=== PATIENT | male | born 1975 | race Caucasian/White ===

== ENCOUNTER → 2016-10-05 | Outpatient (REF) | payer BC ==
[2016-10-05 18:08] LABS: PERCENT SATURATION 24.9 % (19.7-37.4)
== END ==
LOC: M LAB REF 17:07
PROVIDERS: ATTEND Internal Medicine Medical Oncology
DX: E83.110 Hereditary hemochromatosis (principal)

== ENCOUNTER → 2017-01-04 | Outpatient (REF) | payer BC ==
[2017-01-04 20:00] LABS: PERCENT SATURATION 29.8 % (19.7-37.4)
== END ==
LOC: M LAB REF 17:14
PROVIDERS: ATTEND Internal Medicine Medical Oncology
DX: E83.110 Hereditary hemochromatosis (principal)

== ENCOUNTER → 2017-02-08 | Outpatient (REF) | payer BC ==
[2017-02-08 20:05] LABS: PERCENT SATURATION 29.6 % (19.7-37.4)
== END ==
LOC: M LAB REF 17:42
PROVIDERS: ATTEND Internal Medicine Medical Oncology
DX: E83.110 Hereditary hemochromatosis (principal)

== ENCOUNTER → 2017-05-20 | Outpatient (REF) | payer BC ==
[2017-05-20 19:14] LABS: PERCENT SATURATION 41.3 % (19.7-50.0)
== END ==
LOC: M LAB REF 14:21
PROVIDERS: ATTEND Internal Medicine Medical Oncology
DX: E83.110 Hereditary hemochromatosis (principal)

== ENCOUNTER → 2017-09-29 | Outpatient (REF) | payer BC ==
[2017-09-29 21:01] LABS: FERRITIN 110 NG/ML (26-388); IRON (FE) 111 UG/DL (65-175); PERCENT SATURATION 32.6 % (19.7-50.0); TOTAL IRON BINDING CAPACITY 340 UG/DL (250-450)
== END ==
LOC: M LAB REF 19:49
DX: E83.110 Hereditary hemochromatosis (principal)
CPT/HCPCS: 83550

== ENCOUNTER → 2017-11-29 | Outpatient (REF) | payer BC ==
[2017-11-29 18:25] LABS: FERRITIN 90 NG/ML (26-388); IRON (FE) 120 UG/DL (65-175); PERCENT SATURATION 34.8 % (19.7-50.0); TOTAL IRON BINDING CAPACITY 345 UG/DL (250-450)
[2017-11-29 19:34] LABS: ERYTHROCYTE SEDIMENTATION RATE 1 mm/hr (0-15)
== END ==
LOC: M LAB REF 17:35
DX: E83.111 Hemochromatosis due to repeated red blood cell transfusions (principal)
CPT/HCPCS: 83550

== ENCOUNTER → 2018-04-11 | Outpatient (REF) | payer BC ==
[2018-04-11 19:11] LABS: FERRITIN 109 NG/ML (26-388)
== END ==
LOC: M LAB REF 17:00
DX: E83.110 Hereditary hemochromatosis (principal)

== ENCOUNTER → 2018-12-29 | Outpatient (CLI) | payer BC ==
[~2018-12-29] MED LIST: LOSA25TA14 PO
[2018-12-29 19:33] LABS: BLOOD UREA NITROGEN 22 MG/DL (7-18); C REACTIVE PROTEIN QUANTITATIV < 0.30 MG/DL (0.00-0.30); CALCIUM LEVEL 8.5 MG/DL (8.5-10.1); CARBON DIOXIDE LEVEL 30 MEQ/L (21-32); CHLORIDE LEVEL 104 MEQ/L (98-107); CREATININE FOR GFR 0.81 MG/DL (0.70-1.30); GLOMERULAR FILTRATION RATE > 60.0 (>60); GLUCOSE, FASTING 108 MG/DL (70-100); POTASSIUM SERUM 4.4 MEQ/L (3.5-5.1); SODIUM LEVEL 137 MEQ/L (136-145)
[2018-12-29 19:34] LABS: BASO # 0.1 10^3/uL (0.0-0.2); EOS # 0.1 10^3/uL (0.0-0.50); EOS % 2.5 % (0.0-3.0); HEMATOCRIT 46.2 % (42.0-52.0); HEMOGLOBIN 16.3 g/dl (13.5-17.5); LYMPH # 1.3 10^3/uL (1.5-4.5); LYMPH % 25.6 % (24.0-44.0); MEAN CORPUSCULAR HGB CONC 35.3 g/dl (32.0-36.5); MEAN CORPUSCULAR VOLUME 93.5 fl (80.0-96.0); MONO % 18.8 % (0.0-5.0); NEUTROPHILS # 2.7 10^3/uL (1.8-7.7); NEUTROPHILS % 51.9 % (36.0-66.0); PLATELET COUNT, AUTOMATED 230 10^3/uL (150-450); RED BLOOD COUNT 4.94 10^6/uL (4.30-6.10); WHITE BLOOD COUNT 5.2 10^3/uL (4.0-10.0)
[2018-12-29 22:07] LABS: ERYTHROCYTE SEDIMENTATION RATE 2 mm/hr (0-15)
== END ==
LOC: M WUC 16:27
PROVIDERS: ATTEND Physician Assistant
DX: R22.1 Localized swelling, mass and lump, neck (principal)

== ENCOUNTER → 2019-02-13 | Outpatient (CLI) | payer BC ==
[~2019-02-13] MED LIST changes: +FLON1SPR NARES; +ISOVUE-370 76% 100ML VIAL (Q9967) As Ordered ONE
--- NOTE | 2019-02-13 17:27 | REP ---
Soft-tissue neck CT study with IV contrast: History: Lymphadenopathy. New bilateral neck lymphadenopathy. CT contrast dose: 75 ml of intravenous Isovue [address] findings: The visualized paranasal sinuses are clear. Visualized intracranial structures are unremarkable. No intraorbital abnormality is seen. Submandibular and thyroid glands are normal and symmetric. The parotid glands are somewhat nodular in texture and increased in density in size bilaterally and symmetrically consistent with parotid lymphadenopathy. Outside the parotid distribution, there is no significant lymph node enlargement in the suprahyoid or infrahyoid neck. There is a supraclavicular lymph node on the right which is borderline measuring 0.8 x 1.5 cm. There is a smaller node adjacent to this. However, in the upper mediastinum, there is fairly bulky pretracheal precarinal and superior mediastinal adenopathy. The largest node in the superior paratracheal region measures 18 x 18 mm. There is a similar sized lymph node adjacent to this. The lung apices are clear. No airway lesion is seen. No bony destructive lesion is observed. There is a left central disc bulging versus broad-based disc herniation at C5-6 in the cervical spine. Impression: Nodular enlargement of the parotid glands bilaterally consistent with intraparotid lymph adenopathy. There is also superior mediastinal lymphadenopathy. Rule out lymphoma. Consider CT study of the chest abdomen and pelvis. Electronically Signed by Oneil Orellana MD 02/14/2019 08:30 A
== END ==
LOC: M RAD 14:35
PROVIDERS: ATTEND Internal Medicine Medical Oncology
DX: I89.0 Lymphedema, not elsewhere classified (principal)
CPT/HCPCS: 70491; Q9967

== ENCOUNTER → 2019-02-24 | Outpatient (CLI) | payer BC ==
[~2019-02-24] MED LIST changes: +GASTROGRAFIN SOLUTION 30ML (Q9963) As Ordered ONE
--- NOTE | 2019-02-24 10:10 | REP ---
CT of the abdomen and pelvis without and with IV contrast and with bowel contrast for lymphadenopathy: There are no comparisons. Studies performed. Contiguous with the chest CT this same date. The hepatic parenchyma is homogeneous. The gallbladder, pancreas and spleen are unremarkable. The adrenals are unremarkable. The kidneys are unremarkable. The abdominal aorta is unremarkable. There is no periaortic adenopathy or mass. There is no mesenteric adenopathy. The bowel is unremarkable. Pelvis: There are surgical clips adjacent to the cecal tip compatible with appendectomy. The terminal ileum is unremarkable. There is no pelvic adenopathy. There is no ascites. The bladder is unremarkable. There are no lytic, blastic or destructive skeletal changes. There is unilateral spondylolysis of L5 on the right without spondylolisthesis. There is degenerative disc disease at L4-5. Impression: There is no adenopathy. There is no ascites. Appendectomy. Otherwise, negative CT of the abdomen. Electronically Signed by Landry Franks MD 02/24/2019 10:01 A
--- NOTE | 2019-02-24 10:41 | REP ---
CT of the chest with IV contrast for lymphadenopathy: There are no comparisons. There are enlarged mediastinal paratracheal and subcarinal nodes. There are enlarged hilar nodes bilaterally. There is no axillary lymph node enlargement. There are no infiltrates or effusions. There are no lung masses or nodules. The lung fernandez otherwise clear. The thoracic aorta is unremarkable. Cardiac size is normal. There is no pericardial effusion. Impression: Mediastinal and bilateral hilar lymph node enlargement. Electronically Signed by Landry Franks MD 02/24/2019 10:32 A
== END ==
LOC: M RAD 08:02
PROVIDERS: ATTEND Internal Medicine Medical Oncology
DX: R59.9 Enlarged lymph nodes, unspecified (principal)
CPT/HCPCS: 71260; 74178; Q9963; Q9967

== ENCOUNTER → 2019-03-08 | Outpatient (CLI) | payer BC ==
[~2019-03-08] MED LIST changes: +AMOX500C PO; -GASTROGRAFIN SOLUTION 30ML (Q9963) As Ordered ONE; -ISOVUE-370 76% 100ML VIAL (Q9967) As Ordered ONE
--- NOTE | 2019-03-08 12:33 | REP ---
PET/CT: HISTORY: Abnormal chest CT. COMPARISONS: Comparison CT study of the neck, chest abdomen and pelvis is from January 2019. TECHNIQUE: 46 minutes following the intravenous injection of a 9.23 mCi dose of F-18 FDG, three-dimensional PET scintigraphy is acquired from the skull base to the proximal thighs. Triplanar noncontrast CT scanning is acquired through the same anatomic range for attenuation correction, and image registration with scan parameters optimized to minimize radiation exposure to the patient. PET scintigraphy and CT datasets were fused and displayed on a workstation with multiplanar and projection display capability. PET/CT FINDINGS: There is a diffuse pattern of hypermetabolic uptake in the prominent size parotid glands bilaterally. Maximum standard uptake value is of 4.39. This suggests an infiltrative process such as parotitis. There is moderately to markedly hypermetabolic uptake in bilateral hilar and mediastinal lymph nodes. Maximum standard uptake value in these lymph nodes ranges from 9.22 up to 16.22. The most avid mediastinal lymph nodes are right paratracheal. There is a tiny para esophageal lymph node which is hypermetabolic just above the diaphragmatic hiatus maximum SUV 5.81. There is a right supraclavicular uptake in two slightly enlarged right supraclavicular lymph nodes adjacent to one another. Maximum standard uptake value here is 7.16. There is no abnormal uptake in the abdomen or pelvis. IMPRESSION: 1. Hypermetabolic adenopathy in bilateral hilar and scattered mediastinal lymph nodes. There is hypermetabolic mild right supraclavicular adenopathy. Avidity up to a maximum SUV value of 16.22. No abnormal uptake is seen below the diaphragm. Consider histologic lymph node sampling. 2. There is an infiltrative pattern of mildly increased uptake in the parotid glands bilaterally suggesting inflammation or infiltrative process. Electronically Signed by Oneil Orellana MD 03/08/2019 01:43 P
== END ==
LOC: M PLARAD 09:38
PROVIDERS: ATTEND Nurse Practitioner Family
DX: R59.0 Localized enlarged lymph nodes (principal); R91.8 Other nonspecific abnormal finding of lung field; K11.8 Other diseases of salivary glands
CPT/HCPCS: 78815; A9552

== ENCOUNTER → 2019-03-14 | Outpatient (CLI) | payer BC ==
[2019-03-14 17:41] LABS: BASO % 0.7 % (0.0-1.0); EOS # 0.1 10^3/uL (0.0-0.50); EOS % 1.6 % (0.0-3.0); HEMATOCRIT 46.1 % (42.0-52.0); HEMOGLOBIN 16.4 g/dl (13.5-17.5); LYMPH # 0.9 10^3/uL (1.5-4.5); LYMPH % 15.9 % (24.0-44.0); MEAN CORPUSCULAR HEMOGLOBIN 32.9 pg (27.0-33.0); MEAN CORPUSCULAR HGB CONC 35.6 g/dl (32.0-36.5); MEAN CORPUSCULAR VOLUME 92.4 fl (80.0-96.0); MONO # 0.7 10^3/uL (0.0-0.8); MONO % 13.1 % (0.0-5.0); NEUTROPHILS # 3.7 10^3/uL (1.8-7.7); NEUTROPHILS % 68.3 % (36.0-66.0); PLATELET COUNT, AUTOMATED 220 10^3/uL (150-450); RED BLOOD COUNT 4.99 10^6/uL (4.30-6.10); WHITE BLOOD COUNT 5.5 10^3/uL (4.0-10.0)
[2019-03-14 17:53] LABS: INR 1.03; PROTHROMBIN TIME 13.2 SECONDS (11.8-14.0)
[2019-03-14 17:54] LABS: PARTIAL THROMBOPLASTIN TIME 31.7 SECONDS (25.0-38.4)
[2019-03-14 18:14] LABS: ALBUMIN 4.3 GM/DL (3.2-5.2); ALT/SGPT 42 U/L (12-78); BILIRUBIN,DIRECT 0.2 MG/DL (0.0-0.2); BILIRUBIN,TOTAL 0.6 MG/DL (0.2-1.0); CALCIUM LEVEL 9.1 MG/DL (8.5-10.1); CREATININE FOR GFR 0.81 MG/DL (0.70-1.30); GLOMERULAR FILTRATION RATE > 60.0 (>60); TOTAL PROTEIN 7.6 GM/DL (6.4-8.2)
[2019-03-14 18:22] LABS: TOTAL 25(OH) VITAMIN D 20.6 NG/ML (30.0-100.0)
[2019-03-19 08:14] LABS: ANGIOTENSIN 1 CONVERTING ENZYM 58 U/L (14-82); ASPERGILLUS FLAVUS ABY Negative (Neg:<1:1); ASPERGILLUS FUMIGATUS ABY Negative (Neg:<1:1); ASPERGILLUS NIGER ABY Negative (Neg:<1:1); BLASTOMYCES ANTIBODY LEVEL Negative (Neg:<1:1); CRYPTOCOCCUS ANTIGEN SER Negative (Negative); HISTOPLASMOSIS ANTIBODY Negative (Neg:<1:1); Lyme Disease IgG/IgM Antibodie <0.91 ISR (0.00-0.90); Lyme Disease IgM Ab Quantitati <0.80 index (0.00-0.79)
== END ==
LOC: M SMT 14:24
PROVIDERS: ATTEND Internal Medicine Pulmonary Disease
DX: R59.0 Localized enlarged lymph nodes (principal)

== ENCOUNTER → 2019-06-13 | Outpatient (CLI) | payer BC ==
[2019-06-13 15:58] LABS: BLOOD UREA NITROGEN 19 MG/DL (7-18); CREATININE FOR GFR 0.84 MG/DL (0.70-1.30); GLOMERULAR FILTRATION RATE > 60.0 (>60)
== END ==
LOC: M SMT 11:21
PROVIDERS: ATTEND Internal Medicine Pulmonary Disease
DX: D86.2 Sarcoidosis of lung with sarcoidosis of lymph nodes (principal)

== ENCOUNTER → 2019-06-15 | Outpatient (CLI) | payer BC ==
[~2019-06-15] MED LIST changes: +ISOVUE-370 76% 100ML VIAL (Q9967) As Ordered ONE
--- NOTE | 2019-06-16 07:04 | REP ---
Clinical: Sarcoidosis. Comparison: 02/24/2019. Technique: Axial contrast enhanced images from the thoracic inlet to the upper abdomen with coronal and sagittal re-formations using 100 ml Isovue 370 intravenous contrast material. Findings: Mediastinal and hilar adenopathy similar to prior examination is consistent with the given history of sarcoidosis. Thoracic aorta, pulmonary vasculature and heart/pericardium appear normal. Tracheobronchial tree is patent. The bilateral lung fernandez are clear and without increased interstitial changes, significant consolidation, mass or effusion. A 5 mm nodular densities identified in the periphery of the right upper lobe (images 38 - 39) which remains stable. Surrounding musculoskeletal structures are intact. No axillary adenopathy. Impression: 1. Moderate mediastinal and bilateral hilar adenopathy similar to prior examination and consistent with sarcoidosis. 2. 5 mm nodular density in the periphery of the right upper lobe which may warrant 6-month reevaluation. Electronically Signed by Perez Marx MD 06/16/2019 06:56 A
== END ==
LOC: M RAD 14:46
PROVIDERS: ATTEND Internal Medicine Pulmonary Disease
DX: D86.2 Sarcoidosis of lung with sarcoidosis of lymph nodes (principal); R91.8 Other nonspecific abnormal finding of lung field
CPT/HCPCS: 71260; Q9967

== ENCOUNTER → 2019-08-08 | Outpatient (REF) | payer BC ==
[~2019-08-08] MED LIST changes: -ISOVUE-370 76% 100ML VIAL (Q9967) As Ordered ONE
== END ==
LOC: M LAB REF 17:26
PROVIDERS: ATTEND Nurse Practitioner Family
DX: N52.9 Male erectile dysfunction, unspecified (principal)

== ENCOUNTER → 2020-07-15 | Outpatient (CLI) | payer BC ==
[2020-07-15 13:04] LABS: BASO % 0.7 % (0.0-1.0); EOS # 0.1 10^3/uL (0.0-0.5); EOS % 1.7 % (0.0-3.0); HEMATOCRIT 48.5 % (42.0-52.0); HEMOGLOBIN 16.9 g/dl (13.5-17.5); LYMPH # 1.1 10^3/uL (1.5-5.0); LYMPH % 18.5 % (24.0-44.0); MEAN CORPUSCULAR HEMOGLOBIN 32.3 pg (27.0-33.0); MEAN CORPUSCULAR HGB CONC 34.8 g/dl (32.0-36.5); MEAN CORPUSCULAR VOLUME 92.7 fl (80.0-96.0); MONO # 0.8 10^3/uL (0.0-0.8); MONO % 13.2 % (0.0-5.0); NEUTROPHILS % 65.6 % (36.0-66.0); PLATELET COUNT, AUTOMATED 236 10^3/uL (150-450); RED BLOOD COUNT 5.23 10^6/uL (4.30-6.10); WHITE BLOOD COUNT 6.1 10^3/uL (4.0-10.0)
[2020-07-15 13:40] LABS: ALBUMIN 4.1 GM/DL (3.2-5.2); ALT/SGPT 35 U/L (12-78); BILIRUBIN,DIRECT 0.2 MG/DL (0.0-0.2); BILIRUBIN,TOTAL 0.8 MG/DL (0.2-1.0); CALCIUM LEVEL 9.3 MG/DL (8.5-10.1); CREATININE FOR GFR 0.86 MG/DL (0.70-1.30); GLOMERULAR FILTRATION RATE > 60.0 (>60); TOTAL PROTEIN 7.9 GM/DL (6.4-8.2)
== END ==
LOC: M WUC 09:32
PROVIDERS: ATTEND Internal Medicine Pulmonary Disease
DX: D86.2 Sarcoidosis of lung with sarcoidosis of lymph nodes (principal)

== ENCOUNTER → 2020-07-16 | Outpatient (CLI) | payer BC ==
[~2020-07-16] MED LIST changes: +ISOVUE-370 76% 100ML VIAL As Ordered ONE
--- NOTE | 2020-07-17 06:58 | REP ---
INDICATION: SARCOIDOSIS COMPARISON: 06/15/2019 TECHNIQUE: Axial contrast enhanced images from the thoracic inlet to the upper abdomen with coronal and sagittal reformations using 75 ml Isovue 370 intravenous contrast material. [address] examination was performed using the following dose reduction techniques: Automated exposure control, adjustment of mA and/or kv according to the patient's size, and use of iterative reconstruction technique. FINDINGS: Mediastinal and bilateral hilar adenopathy is again noted and similar to prior examination. There is a reticulonodular interstitial infiltrate primarily involving the right hemithorax and specifically the right upper lung zone with few scattered larger nodular densities in the right upper lobe measuring up to approximately 11 mm. These findings are consistent with active acute sarcoidosis and require clinical correlation and follow-up to exclude the possibility of superimposed pathology. No pleural effusion. No pneumothorax. Thoracic aorta and pulmonary vasculature appear relatively normal. Atherosclerotic changes to the coronary arteries noted without significant cardiomegaly or pericardial effusion. Musculoskeletal structures are intact and without acute osseous abnormality. IMPRESSION: 1. New reticulonodular infiltrate and few scattered pulmonary nodules in the right upper lobe measuring up to 11 mm along with stable mediastinal/hilar adenopathy suggests acute active sarcoidosis. Six month follow-up examination to exclude more significant pathology may be warranted. <Electronically signed by Perez Marx > 07/17/20 [id number]
== END ==
LOC: M RAD 12:57
PROVIDERS: ATTEND Internal Medicine Pulmonary Disease
DX: D86.2 Sarcoidosis of lung with sarcoidosis of lymph nodes (principal); R91.8 Other nonspecific abnormal finding of lung field
CPT/HCPCS: 71260; Q9967

== ENCOUNTER → 2020-11-06 | Outpatient (CLI) | payer BC ==
[~2020-11-06] MED LIST changes: -ISOVUE-370 76% 100ML VIAL As Ordered ONE
[2020-11-06 14:27] LABS: ALT/SGPT 41 U/L (12-78); BILIRUBIN,TOTAL 0.5 MG/DL (0.2-1.0); BLOOD UREA NITROGEN 16 MG/DL (7-18); CALCIUM LEVEL 9.1 MG/DL (8.5-10.1); CARBON DIOXIDE LEVEL 31 MEQ/L (21-32); CHLORIDE LEVEL 103 MEQ/L (98-107); GLOMERULAR FILTRATION RATE > 60.0 (>60); GLUCOSE, FASTING 103 MG/DL (70-100); POTASSIUM SERUM 4.1 MEQ/L (3.5-5.1); SODIUM LEVEL 137 MEQ/L (136-145); TOTAL PROTEIN 7.6 GM/DL (6.4-8.2)
[2020-11-06 14:38] LABS: TOTAL 25(OH) VITAMIN D 19.1 NG/ML (30.0-100.0)
[2020-11-08 15:07] LABS: VITAMIN D 1,25 DIHYDROXY 74.3 pg/mL (19.9-79.3)
== END ==
LOC: M LAB 13:11
PROVIDERS: ATTEND Internal Medicine Pulmonary Disease
DX: D86.2 Sarcoidosis of lung with sarcoidosis of lymph nodes (principal)

== ENCOUNTER → 2021-05-02 | Outpatient (CLI) | payer BC ==
[~2021-05-02] MED LIST changes: +ISOVUE-370 76% 100ML VIAL As Ordered ONE
--- NOTE | 2021-05-02 16:06 | REP ---
INDICATION: ABN FINDING OF LUNG FIELD, SARCOIDOSIS. COMPARISON: 07/16/2020. TECHNIQUE: CT chest performed following the intravenous administration of 100 cc of Isovue 370. Sagittal and coronal reconstruction images are performed. FINDINGS: Lungs: Mild scattered reticulonodular densities in the left lung are stable. A greater, more moderate degree of diffuse reticulonodular opacities are seen in the right lung, mostly in the right perihilar region peripherally. For the most part these right-sided opacities are unchanged, except that at the level of the hilum there is mild increased confluent consolidative opacity peripherally. Mediastinum: The previously noted mildly enlarged mediastinal lymph nodes have decreased in size and are subcentimeter in diameter. Liana: The bilateral mildly enlarged hilar lymph nodes have decreased in size and are now subcentimeter in diameter. Axilla: No adenopathy. Pleura: No effusion. Heart: Not enlarged. Thoracic aorta: No aneurysm or dissection. Upper abdominal structures: There are multiple innumerable subcentimeter nodules throughout the liver. Multiple nodules are seen throughout the spleen. Maximum diameter of the splenic nodules is approximately 3 cm. Visualized osseous structures: There are mild degenerative changes of the spine. IMPRESSION: Bilateral reticulonodular parenchymal opacities, much greater on the right than on the left. For the most part these are stable, except on the right, at the level of the hilum there is mild increased peripheral confluent consolidative opacity. Previously noted mediastinal and hilar adenopathy has essentially resolved, with subcentimeter lymph nodes at these locations now visualized. Multiple innumerable subcentimeter nodules throughout the liver. Multiple nodules throughout the spleen. These abdominal findings are likely secondary to sarcoidosis. <Electronically signed by Landry Guerrero > 05/02/21 [id number]
== END ==
LOC: M RAD 13:15
PROVIDERS: ATTEND Internal Medicine Pulmonary Disease
DX: D86.2 Sarcoidosis of lung with sarcoidosis of lymph nodes (principal); R91.8 Other nonspecific abnormal finding of lung field

== ENCOUNTER → 2021-07-29 | Outpatient (CLI) | payer BC ==
[~2021-07-29] MED LIST changes: -ISOVUE-370 76% 100ML VIAL As Ordered ONE; +LOSA25TA13 PO; -LOSA25TA14 PO; +PRED10TA2
== END ==
LOC: M RAD 12:39
PROVIDERS: ATTEND Internal Medicine Pulmonary Disease
DX: D86.2 Sarcoidosis of lung with sarcoidosis of lymph nodes (principal)

== ENCOUNTER → 2021-08-06 | Outpatient (CLI) | payer BC ==
[~2021-08-06] MED LIST changes: -LOSA25TA13 PO; +LOSA25TA14 PO; -PRED10TA2
[2021-08-06 12:47] LABS: BASO % 0.5 % (0.0-1.0); EOS # 0.1 10^3/uL (0.0-0.5); EOS % 1.6 % (0.0-3.0); HEMATOCRIT 46.3 % (42.0-52.0); HEMOGLOBIN 16.2 g/dl (13.5-17.5); LYMPH # 1.3 10^3/uL (1.5-5.0); LYMPH % 23.3 % (24.0-44.0); MEAN CORPUSCULAR HEMOGLOBIN 32.1 pg (27.0-33.0); MEAN CORPUSCULAR VOLUME 91.9 fl (80.0-96.0); MONO # 0.9 10^3/uL (0.0-0.8); MONO % 16.6 % (2.0-8.0); NEUTROPHILS # 3.2 10^3/uL (1.5-8.5); NEUTROPHILS % 57.8 % (36.0-66.0); PLATELET COUNT, AUTOMATED 213 10^3/uL (150-450); RED BLOOD COUNT 5.04 10^6/uL (4.30-6.10); WHITE BLOOD COUNT 5.6 10^3/uL (4.0-10.0)
[2021-08-06 13:21] LABS: ALBUMIN 3.9 GM/DL (3.2-5.2); ALT/SGPT 47 U/L (12-78); BILIRUBIN,DIRECT 0.2 MG/DL (0.0-0.2); BILIRUBIN,TOTAL 0.6 MG/DL (0.2-1.0); CALCIUM LEVEL 8.6 MG/DL (8.5-10.1); CREATININE FOR GFR 0.75 MG/DL (0.70-1.30); GLOMERULAR FILTRATION RATE > 60.0 (>60); GLUCOSE, FASTING 113 MG/DL (70-100); TOTAL PROTEIN 7.4 GM/DL (6.4-8.2)
== END ==
LOC: M WUC 10:52
PROVIDERS: ATTEND Internal Medicine Pulmonary Disease
DX: D86.2 Sarcoidosis of lung with sarcoidosis of lymph nodes (principal)

== ENCOUNTER → 2021-08-06 | Outpatient (REF) | payer BC ==
[2021-08-07 13:41] LABS: FERRITIN 157 NG/ML (26-388); IRON (FE) 80 UG/DL (65-175)
== END ==
LOC: M LAB REF 12:15
PROVIDERS: ATTEND Registered Nurse
DX: E83.119 Hemochromatosis, unspecified (principal)

== ENCOUNTER → 2021-08-12 | Outpatient (CLI) | payer BC ==
--- NOTE | 2021-08-12 11:14 | REP ---
INDICATION: COUGH, UNSPECIFIED COMPARISON: Chest CT dated 07/29/2021 TECHNIQUE: PA and lateral. FINDINGS: The mediastinum and cardiac silhouette are normal. The lung fernandez are clear and without acute consolidation, effusion, or pneumothorax. The skeletal structures are intact and normal. IMPRESSION: No acute cardiopulmonary process. <Electronically signed by Perez Marx > 08/12/21 [id number]
== END ==
LOC: M RAD 11:01
PROVIDERS: ATTEND Physician Assistant
DX: R05.9 Cough, unspecified (principal)

== ENCOUNTER → 2021-08-14 | Outpatient (REF) | payer BC | LOC: M LAB REF 13:13 | PROVIDERS: ATTEND Internal Medicine Pulmonary Disease | DX: D86.2 Sarcoidosis of lung with sarcoidosis of lymph nodes (principal) ==

== ENCOUNTER → 2021-12-27 | Outpatient (CLI) | payer BC ==
[~2021-12-27] MED LIST changes: +LOSA25TA13 PO; -LOSA25TA14 PO; +PRED10TA2
== END ==
LOC: M SLEEP 20:00
PROVIDERS: ATTEND Internal Medicine Pulmonary Disease
DX: G47.33 Obstructive sleep apnea (adult) (pediatric) (principal)

== ENCOUNTER → 2022-02-12 | Outpatient (REF) | payer BC ==
[2022-02-12 18:01] LABS: FOLATE 20.1 NG/ML
== END ==
LOC: M LAB REF 16:03
PROVIDERS: ATTEND Registered Nurse
DX: R53.83 Other fatigue (principal)

== ENCOUNTER → 2022-08-14 | Outpatient (REF) | payer BC ==
[2022-08-16 08:08] LABS: LDL DIRECT 77 mg/dL (0-99)
== END ==
LOC: M LAB REF 16:47
PROVIDERS: ATTEND Registered Nurse
DX: E78.1 Pure hyperglyceridemia (principal)

== ENCOUNTER → 2023-10-04 | Outpatient (REF) | payer BC ==
[2023-10-04 15:47] LABS: PERCENT SATURATION 44.5 % (19.7-50.0)
[2023-10-04 15:50] LABS: FERRITIN 148.1 NG/ML (10.5-307.3)
== END ==
LOC: M LAB REF 12:49
PROVIDERS: ATTEND Nurse Practitioner Family
DX: E83.119 Hemochromatosis, unspecified (principal)

== ENCOUNTER → 2024-04-03 | Outpatient (REF) | payer BC ==
[2024-04-03 14:48] LABS: PERCENT SATURATION 24.9 % (19.7-50.0)
[2024-04-03 14:51] LABS: FERRITIN 95.1 NG/ML (10.5-307.3)
== END ==
LOC: M LAB REF 12:51
PROVIDERS: ATTEND Nurse Practitioner Family
DX: E83.119 Hemochromatosis, unspecified (principal)

== ENCOUNTER → 2024-07-12 | Outpatient (CLI) | payer BC | LOC: M PLAIMG 12:29 | PROVIDERS: ATTEND Internal Medicine Pulmonary Disease | DX: R91.8 Other nonspecific abnormal finding of lung field (principal) ==

== ENCOUNTER → 2024-10-10 | Outpatient (CLI) | payer BC | LOC: M WUC 09:15 | PROVIDERS: ATTEND Nurse Practitioner Family | DX: M77.31 Calcaneal spur, right foot (principal) ==

== ENCOUNTER → 2025-04-16 | Outpatient (REF) | payer BC ==
[2025-04-16 13:15] LABS: IRON (FE) 105.0 UG/DL (65-175); PERCENT SATURATION 33.3 % (19.7-50.0)
== END ==
LOC: M LAB REF 12:12
PROVIDERS: ATTEND Nurse Practitioner Family
DX: E83.119 Hemochromatosis, unspecified (principal)

== ENCOUNTER 2025-08-16 09:19 | Day surgery (SDC) | payer BC ==
[~2025-08-16] VITALS: Ht 172.7 cm; Wt 111.1 kg
[~2025-08-16 09:19] MED LIST changes: +LOSA50TA28 PO; +MULT-251 PO
[2025-08-16] MEDS ORDERED: GLYCOPYRROLATE INJ 0.2 MG/ML 2 ML VIAL As Ordered ONE (09:51)
[2025-08-16] MEDS ORDERED: LIDOCAINE 2% 100 MG/5 ML SDV (FOR ANES.) As Ordered ONE (09:51)
[2025-08-16 12:24] VITALS: BP 131/77; O2SAT 98
== END 2025-08-16 12:28 | disposition home or self-care (01) ==
LOC: M OPP 09:19
PROVIDERS: ATTEND Surgery
DX: Z12.11 Encounter for screening for malignant neoplasm of colon (principal); G47.30 Sleep apnea, unspecified; Z79.899 Other long term (current) drug therapy
CPT/HCPCS: 45378; J1596